=== PATIENT | male | born 1955 | race Two or more races ===

== ENCOUNTER → 2017-05-11 | Outpatient (CLI) | payer OTHER ==
[2017-05-11 11:47] LABS: ALBUMIN 2.9 g/dL (3.4-5.0); ALBUMIN/GLOBULIN RATIO 0.6 (1.0-1.7); BASO % 0 % (0-3); CREATININE 1.4 mg/dL (0.7-1.3); EOS % 0 % (0-3); GFR 51.2; HEMATOCRIT 41.1 % (39.0-53.0); HEMOGLOBIN 12.8 g/dL (13.0-17.5); LYMPH # 0.4 x10^3/uL (1.0-4.8); LYMPH % 2 % (24-48); MEAN CORPUSCULAR HEMOGLOBIN 23 pg (25-35); MEAN CORPUSCULAR HGB CONC 31 g/dL (31-37); MEAN CORPUSCULAR VOLUME 75 fL (79-100); MONO # 0.8 x10^3/uL (0.0-1.1); MONO % 5 % (0-9); NEUT # 17.4 x10^3uL (1.8-7.7); NEUT % 93 % (31-73); PLATELET COUNT 704 x10^3/uL (140-400); POTASSIUM 4.3 mmol/L (3.5-5.1); RED BLOOD COUNT 5.48 x10^6/uL (4.30-5.70); RED CELL DISTRIBUTION WIDTH 17.8 % (11.5-14.5); TOTAL BILIRUBIN 1.2 mg/dL (0.2-1.0); TOTAL PROTEIN 8.1 g/dL (6.4-8.2); WHITE BLOOD COUNT 18.8 x10^3/uL (4.0-11.0)
[2017-05-11 12:11] LABS: % BANDS 8 % (0-9); % BASOS 0 % (0-3); % EOS 0 % (0-5); % LYMPHS 6 % (24-48); % MONOS 6 % (0-10); % SEGS 84 % (35-66); ANISOCYTOSIS PRESENT; HYPOCHROMIA PRESENT; PLT ESTIMATE INCREASED (ADEQUATE); POLYCHROMASIA PRESENT
[2017-05-11 12:12] LABS: TOXIC VACUOLATION MOD
== END | disposition home or self-care (01) ==
LOC: EEVIPCON 11:44 → SPEC 11:44
PROVIDERS: ATTEND Family Medicine
DX: R10.84 Generalized abdominal pain (principal)
CPT/HCPCS: 36415; 80053; 82150; 83690; 85007; 85025

== ENCOUNTER → 2017-08-12 | Outpatient (CLI) | payer OTHER ==
--- NOTE | 2017-08-12 08:41 | RAD ---
PQRS Compliance Statement: One or more of the following individualized dose reduction techniques were utilized for this examination: 1. Automated exposure control 2. Adjustment of the mA and/or kV according to patient size 3. Use of iterative reconstruction technique CT abdomen/pelvis without contrast 08/12/2017 8:00 AM INDICATION: History of perforated diverticulitis. JACOBY drain is in place. COMPARISON: CT abdomen/pelvis May 27, 2017 TECHNIQUE: Multiple axial CT images of the abdomen and pelvis were obtained without intravenous contrast. Coronal and sagittal reformats are provided. FINDINGS:2 There is resolution of bilateral pleural effusions with minimal residual pleural thickening at the left lung base. There is a residual nodular opacity in the inferior lingula measuring 17 x 11 mm. Heart size is borderline. Median sternotomy changes are present. Evaluation of the solid abdominal viscera is limited by lack of intravenous contrast. The liver, spleen, bilateral adrenal glands, pancreas and gallbladder are normal in appearance. The abdominal aorta is normal in course and caliber. There are no pathologically enlarged lymph nodes in the abdomen and pelvis. There is no abdominal free fluid. There is no free intraperitoneal air. Atherosclerotic changes are identified involving the abdominal aorta. The kidneys are relatively symmetric in appearance. There is no suspicious renal mass within the limitations of a noncontrast examination. There is no hydronephrosis. There are no calculi within the kidneys, ureters or urinary bladder. There is moderate colonic diverticulosis. A surgical drainage catheter is identified extending via right lateral pelvic approach with pigtail centered in the right lower quadrant. No significant fluid is noted surrounding the catheter. Minimal mesenteric inflammatory changes are noted. No residual free fluid is noted within the abdomen and pelvis. Normal appendix is visualized. No evidence for bowel obstruction or inflammation. Minimal bladder wall thickening may be secondary to underdistention. Prostate and seminal vesicles appear normal. No suspicious osseous abnormality is visualized. IMPRESSION: Resolution of bowel inflammatory changes associated with diverticulitis. There is complete resolution of organized and free fluid within the abdomen and pelvis with a drainage catheter identified in the right lower quadrant. Minimal inflammatory changes are noted adjacent to the catheter pigtail without definite fluid collection. Interval resolution of bilateral pleural effusions with minimal residual pleural thickening at the left lung base. There is a 17 x 11 mm nodular opacity in the inferior lingula which may represent resolving infiltrate. Follow-up chest CT in 3 months may be of benefit. Electronically signed by: Crystal Deleon MD (08/12/2017 8:38 AM) [facility]
== END | disposition home or self-care (01) ==
LOC: CT 07:45
PROVIDERS: ATTEND Family Medicine
DX: K57.00 Diverticulitis of small intestine with perforation and abscess without bleeding (principal); I70.0 Atherosclerosis of aorta
CPT/HCPCS: 74176